=== PATIENT | female | born 1995 | race African-American/Black ===

== ENCOUNTER 2016-11-05 08:36 | Emergency (ER) | payer OTHER ==
[~2016-11-05] VITALS: Ht 154.9 cm; Wt 65.0 kg
[2016-11-05 08:43] VITALS: BP 126/75; PULSE 114; RESP 18; TEMP 99.6; O2SAT 98
--- NOTE | 2016-11-05 09:00 | PD ---
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 She reports she had a similar cyst between her breasts last week that went away on its own. She says last night she had a fever 102, associated with some sore throat and ear pain. The bump is painful, and she feels like there is fluid inside it. she has had thick white discharge and pain with urination. She is sexually active with one partner for the past year. [facility] Past Medical History Medical History: Denies Significant Hx Diminished Hearing: No Tetanus Vaccination: > 5 Years Influenza Vaccination: No ?: Unknown LMP: July,, "irregular" : 0 Past Surgical History Surgical History: No Previous Surgery Social History Alcohol Use: No Tobacco Use: No Substance Use: No Allergies-Medications (Allergen,Severity, Reaction): Coded Allergies: No Known Allergies (Unverified , 11/05/16) Reported Meds & Prescriptions Reported Meds & Active Scripts Active No Active Prescriptions or Reported Medications Review of Systems Except as stated in HPI: all other systems reviewed are Neg Physical Exam Narrative GENERAL: Well-nourished, well-developed patient. SKIN: Warm and dry. HEAD: Normocephalic. EYES: No scleral icterus. No injection or drainage. NECK: Supple, trachea midline. CARDIOVASCULAR: Regular rate and rhythm without murmurs. RESPIRATORY: Breath sounds equal bilaterally. No accessory muscle use. GASTROINTESTINAL: Abdomen soft, non-tender, nondistended. 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 Data Data Last Documented VS Vital Signs Date Time Temp Pulse Resp B/P Pulse Ox O2 Delivery O2 Flow Rate FiO2 11/05/16 08:43 99.6 114 18 126/75 98 MDM Medical Decision Making Medical Screen Exam Complete: Yes Emergency Medical Condition: Yes Differential Diagnosis Bartholin's cyst, abscess, herpes, yeast infection, chlamydia, gonorrhea, Trichomonas Narrative Course This is a 20-year-old female who presents to the emergency department reporting a lump on her vagina as well as some fever. Her pelvic exam is consistent with HSV and likely STD related cervicitis. Given she has a low-grade temperature and reports a fever at home he think it's reasonable to treat her for pelvic inflammatory disease. Patient will be given antibiotics as well as antivirals and can follow-up with primary care physician. Diagnosis Primary Impression: Genital HSV Qualified Code: A60.04 - Herpes simplex vulvovaginitis Additional Impression: Pelvic inflammatory disease Patient Instructions: General Instructions Additional Instructions: If you develop fever, chills, severe abdominal pain, persistent vomiting or inability to eat return to the emergency department. Your pelvic exam today did not include a Pap smear. It is important to followup with a grader green meat on a yearly basis to be tested for cervical cancer as we do not do that from the emergency department. If there is a concern that you have sexually transmitted disease, your partner should be tested. You should followup with your grader green [facility] or with the health department to get tested for other sexually transmitted diseases like HIV and syphilis, as we do not test for these in the emergency department Med/Other Pt SpecificInfo: Prescription(s) given Scripts Metronidazole (Flagyl)500 Mg Sys511 Mg PO BID 14 Days Prov:Erendira Garcia MD 11/05/16 Doxycycline (Monohydrate) (Doxycycline)150 Mg Cap1 Tab PO BID 14 Days Prov:Erendira Garcia MD 11/05/16 Valacyclovir 1 Gm Tab1,000 Mg PO BID 10 Days Ref 0 Prov:Erendira Garcia MD 11/05/16 Disposition: 01 DISCHARGE HOME Condition: Stable Erendira Garcia MD Nov 05, 2016 09:00
[2016-11-05] MEDS ORDERED: METR-1 PO (09:33)
[2016-11-05] MEDS ORDERED: VALA1TAB PO (09:33)
[2016-11-05] MEDS ORDERED: DOXY150C PO (09:33)
[2016-11-05] MEDS ORDERED: LIDOCAINE HCL 1% 50 ML VIAL IM ONE (09:45)
[2016-11-05] MEDS ORDERED: cefTRIAXone 250 MG VIAL IM ONE (09:45)
[2016-11-05 16:37] LABS: CHLAMYDIA PCR NOT DETECTED (NOT DETECT); NEISSERIA PCR NOT DETECTED (NOT DETECT)
[2016-11-06 11:27] LABS: VZV RESULT Negative (Negative); VZV SPECIMEN SOURCE VAGINA (())
== END 2016-11-05 10:25 | disposition home or self-care (01) ==
LOC: PHED 08:36
DX: A60.04 Herpesviral vulvovaginitis (principal); N73.9 Female pelvic inflammatory disease, unspecified
CPT/HCPCS: 87210; 87491; 87529; 87591; 87798; 96372; 99283; J0696

== ENCOUNTER 2017-04-03 22:30 | Emergency (ER) | payer OTHER ==
[~2017-04-03 22:30] MED LIST: DOXY150C PO; METR-1 PO; VALA1TAB PO
[2017-04-03 22:42] VITALS: BP 142/85; PULSE 97; RESP 18; TEMP 98; O2SAT 100
[2017-04-03] MEDS ORDERED: [UNRECOGNIZED DRUG - CODE] PO (23:33)
--- NOTE | 2017-04-03 23:33 | PD ---
HPI Chief Complaint: Cold / Flu Symptoms Time Seen by Provider: 23:27 Travel History International Travel<30 days: No Contact w/Intl Traveler<30days: No Traveled to known affect area: No History of Present Illness HPI The patient is a 21-year-old female that complains of a cough for 5 days along with rhinorrhea. She denies any chest pain, shortness of breath, nausea, vomiting and diarrhea and she is not . She denies any fever. She is mostly interested in the nasal congestion. She states there is no possibility of . She had a sore throat but this resolved days ago. [facility] Past Medical History Medical History: Denies Significant Hx Diminished Hearing: No Immunizations Current: Yes Tetanus Vaccination: Unknown Influenza Vaccination: No ?: Not LMP: TODAY : 0 Past Surgical History Surgical History: No Previous Surgery Social History Alcohol Use: No Tobacco Use: No Substance Use: No Allergies-Medications (Allergen,Severity, Reaction): Coded Allergies: No Known Allergies (Unverified , 04/03/17) Reported Meds & Prescriptions Reported Meds & Active Scripts Active Review of Systems Except as stated in HPI: all other systems reviewed are Neg Physical Exam Narrative GENERAL: Well-nourished, well-developed patient in no respiratory distress. Her vital signs show blood pressure 142/85 but are otherwise normal. SKIN: Focused skin assessment warm/dry. HEAD: Normocephalic. EYES: No scleral icterus. No injection or drainage. NECK: Supple, trachea midline. No JVD or lymphadenopathy. CARDIOVASCULAR: Regular rate and rhythm without murmurs, gallops, or rubs. RESPIRATORY: Breath sounds equal bilaterally. No accessory muscle use. GASTROINTESTINAL: Abdomen soft, non-tender, nondistended. MUSCULOSKELETAL: No cyanosis, or edema. BACK: Nontender without obvious deformity. No CVA tenderness. ENT: The tympanic membranes are clear and the throat is slightly red without exudate or abscess. Data Data Last Documented VS Vital Signs Date Time Temp Pulse Resp B/P Pulse Ox O2 Delivery O2 Flow Rate FiO2 04/03/17 22:42 98.0 97 18 142/85 100 MDM Medical Decision Making Medical Screen Exam Complete: Yes Emergency Medical Condition: Yes Medical Record Reviewed: Yes Differential Diagnosis Viral upper respiratory infection, sinusitis, pharyngitis, ear infection Narrative Course The patient has a viral upper respiratory infection with rhinorrhea being her most significant symptom. Plan: She will get Entex [place]. Diagnosis Primary Impression: Viral upper respiratory infection Med/Other Pt SpecificInfo: Prescription(s) given Scripts Pseudoephedrine-Guaifenesin (Entex T)60-375 Mg Tab1 Tab PO Q6HR WHILE AWAKE NEB #30 Prov:Sudhir Garcia MD 04/03/17 Disposition: 01 DISCHARGE HOME Condition: Stable Sudhir Garcia MD Apr 03, 2017 23:33
== END 2017-04-03 23:48 | disposition home or self-care (01) ==
LOC: PHEFT 22:30
DX: J06.9 Acute upper respiratory infection, unspecified (principal)
CPT/HCPCS: 99283

== ENCOUNTER 2017-04-09 19:19 | Emergency (ER) | payer OTHER ==
[~2017-04-09] VITALS: Ht 152.4 cm; Wt 69.0 kg
[~2017-04-09 19:19] MED LIST changes: -DOXY150C PO; -METR-1 PO; -VALA1TAB PO; +[UNRECOGNIZED DRUG - CODE] PO
[2017-04-09 19:25] VITALS: BP 136/94; PULSE 96; RESP 20; TEMP 98.2; O2SAT 99
[2017-04-09] MEDS ORDERED: AUGM875T3 PO (19:55)
--- NOTE | 2017-04-09 20:10 | PD ---
HPI Chief Complaint: ENT Complaint Time Seen by Provider: 19:45 Travel History International Travel<30 days: No Contact w/Intl Traveler<30days: No Traveled to known affect area: No History of Present Illness HPI 21-year-old female presents to the emergency room for evaluation of nasal congestion, nonproductive cough, sore throat, and right ear pain for the past 2 weeks. She came to the emergency room one week ago and was discharged with over -the-counter medications. States she seemed to feel worse after that. She has not followed up with her primary care physician. Denies fever, chills, nausea, and vomiting. She has a normal appetite and has been able to go to work. Patient denies chronic medical conditions or daily medications. [facility] Past Medical History Medical History: Denies Significant Hx Diminished Hearing: No Immunizations Current: Yes Tetanus Vaccination: > 5 Years Influenza Vaccination: No ?: Not LMP: "Last week" : 0 Past Surgical History Surgical History: No Previous Surgery Social History Alcohol Use: No Tobacco Use: No Substance Use: No Allergies-Medications (Allergen,Severity, Reaction): Coded Allergies: No Known Allergies (Unverified , 04/09/17) Reported Meds & Prescriptions Reported Meds & Active Scripts Active Augmentin (Amoxicillin-Clavulanate) 875-125 Mg Tab 1 Tab PO BID 10 Days Review of Systems Except as stated in HPI: all other systems reviewed are Neg Physical Exam Narrative GENERAL: Well-nourished, well-developed female in no acute distress. Afebrile. Ambulatory. SKIN: Focused skin assessment warm/dry. HEAD: Normocephalic. EYES: No scleral icterus. No injection or drainage. NECK: Supple, trachea midline. No JVD or lymphadenopathy. ENT: Mucosa pink and moist. Mild erythema with extreme edema but without exudates. No uvular edema. No uvular, palatal, or tonsillar deviation. Airway patent. Nasal turbinates appear normal without nasal blood, purulent drainage or septal hematoma. EARS: Bilateral pinnae and external canals appear within normal limits. Bilateral tympanic membranes without erythema, dullness or perforation. CARDIOVASCULAR: Regular rate and rhythm without murmurs, gallops, or rubs. RESPIRATORY: Breath sounds equal bilaterally. No accessory muscle use. No crackles, rales, wheezes, or rhonchi. Data Data Last Documented VS Vital Signs Date Time Temp Pulse Resp B/P Pulse Ox O2 Delivery O2 Flow Rate FiO2 04/09/17 19:35 18 04/09/17 19:25 98.2 96 136/94 99 MDM Medical Decision Making Medical Screen Exam Complete: Yes Emergency Medical Condition: Yes Medical Record Reviewed: Yes Differential Diagnosis Sinusitis, upper respiratory infection, bronchitis Narrative Course 21-year-old female presents to the emergency room for cough, congestion, sore throat, and other upper respiratory symptoms for the past 2 weeks. She was seen one week ago and states she feels worse since that time. Patient is afebrile well-appearing in the emergency room. Resting comfortably in bed. Physical exam reveals purulent drainage in the bilateral nostrils. She also has 4+ touching tonsils. She was given Decadron for the tonsils. Given worsening of symptoms and duration, patient will be treated for bacterial sinusitis with Augmentin. Discharged with prescription and told to follow-up with a primary care physician or return for worsening symptoms. She understands and agrees to plan. Diagnosis Primary Impression: Sinusitis Qualified Code: J01.00 - Acute maxillary sinusitis, recurrence not specified Referrals: Primary Care Physician Patient Instructions: General Instructions, Sinusitis (ED) Additional Instructions: Rest and drink plenty of fluids. Take Augmentin as directed, until gone. Follow-up with a primary care physician. Return to the emergency room for worsening symptoms. Med/Other Pt SpecificInfo: Prescription(s) given Scripts Amoxicillin-Clavulanate (Augmentin)875-125 Mg Tab1 Tab PO BID 10 Days Ref 0 Prov:Oniel Meek MD 04/09/17 Disposition: 01 DISCHARGE HOME Condition: Stable Zoila Cai Apr 09, 2017 20:10
[2017-04-09] MEDS ORDERED: DEXAMETHASONE SOD PHOS 4 MG/ML VIAL IM ONE (20:15)
== END 2017-04-09 20:20 | disposition home or self-care (01) ==
LOC: PHEFT 19:19
DX: J01.00 Acute maxillary sinusitis, unspecified (principal)
CPT/HCPCS: 96372; 99284; J1100

== ENCOUNTER 2017-07-25 15:28 | Emergency (ER) | payer OTHER ==
[~2017-07-25] VITALS: Ht 154.9 cm; Wt 69.0 kg
[~2017-07-25 15:28] MED LIST changes: +AUGM875T3 PO; -[UNRECOGNIZED DRUG - CODE] PO
[2017-07-25 15:34] VITALS: BP 142/69; PULSE 113; RESP 16; TEMP 98; O2SAT 100
[2017-07-25 16:06] LABS: BLOOD, URINE TRACE (NEG); GLUCOSE,URINE NEG (NEG); KETONE, URINE NEG (NEG); NITRITE,URINE NEG (NEG); PH, URINE 5.5 (5.0-8.5)
[2017-07-25 16:37] LABS: METHOD OF COLLECTION VOIDED
[2017-07-25 16:38] LABS: BACTERIA, URINE RARE /hpf; COMMENT (UR) CULT NOT INDICATED; CULTURE IF INDICATED CULT NOT INDICATED; URINE COLOR YELLOW (YELLW/STRAW)
--- NOTE | 2017-07-25 16:45 | PD ---
HPI Chief Complaint: Complaint Time Seen by Provider: 16:37 Travel History International Travel<30 days: No Contact w/Intl Traveler<30days: No Traveled to known affect area: No History of Present Illness HPI 21-year-old female presents to emergency department for burning when she pees that started after cutting herself in the shower. States that she was shaving and accidentally cut herself and then started developing bumps in the vaginal area that are tender to the touch. She does have a history of herpes simplex and her last outbreak was in November. She denies any other medical issues. Fever, chills, chest pain, shortness of breath, abdominal pain, back pain, vaginal discharge. PFSH Past Medical History Diminished Hearing: No Medical other: Yes (GENITAL HERPES) Immunizations Current: Yes Tetanus Vaccination: < 5 Years Influenza Vaccination: No ?: Not LMP: /MAY : 0 Past Surgical History Surgical History: No Previous Surgery Social History Alcohol Use: No Tobacco Use: No Substance Use: No Allergies-Medications (Allergen,Severity, Reaction): Coded Allergies: No Known Allergies (Unverified , 07/25/17) Reported Meds & Prescriptions Reported Meds & Active Scripts Active Valacyclovir (Valacyclovir HCl) 500 Mg Tab 500 Mg PO BID 5 Days Review of Systems Except as stated in HPI: all other systems reviewed are Neg Physical Exam Narrative GENERAL: Well-nourished, well-developed patient. SKIN: Focused skin assessment warm/dry. HEAD: Normocephalic. EYES: No scleral icterus. No injection or drainage. NECK: Supple, trachea midline. No JVD or lymphadenopathy. CARDIOVASCULAR: Regular rate and rhythm without murmurs, gallops, or rubs. RESPIRATORY: Breath sounds equal bilaterally. No accessory muscle use. GASTROINTESTINAL: Abdomen soft, non-tender, nondistended. MUSCULOSKELETAL: No cyanosis, or edema. No CVA tenderness Genitourinary: small 1-2mm ulcerations in the posterior external vulva, no discharge, edema, or erythema. BACK: Nontender without obvious deformity. No CVA tenderness. Data Data Last Documented VS Vital Signs Date Time Temp Pulse Resp B/P (MAP) Pulse Ox O2 Delivery O2 Flow Rate FiO2 07/25/17 15:34 98.0 113 16 142/69 (93) 100 Orders Orders Urinalysis - C+S If Indicated (07/25/17 15:38) Ed Urine Pregnancytest Poc (07/25/17 15:38) Ed Discharge Order (07/25/17 16:53) Labs Laboratory Tests Test 07/25/17 15:40 Urine Collection Type VOIDED Urine Color YELLOW Urine Turbidity CLEAR Urine pH 5.5 Urine Specific [place] 1.025 Urine Protein NEG mg/dL Urine Glucose (UA) NEG mg/dL Urine Ketones NEG mg/dL Urine Occult Blood TRACE Urine Nitrite NEG Urine Bilirubin NEG Urine Leukocyte Esterase SMALL Urine WBC 6-8 /hpf Urine Squamous Epithelial Cells 6-8 /hpf Urine Bacteria RARE /hpf Microscopic Urinalysis Comment CULT NOT INDICATED MDM Medical Decision Making Medical Screen Exam Complete: Yes Emergency Medical Condition: Yes Differential Diagnosis Genital Herpes simplex versus vaginal laceration versus UTI Narrative Course 21-year-old female presents to the emergency department for complaints of vaginal irritation and burning when she peas. States started after shaving and has developed bumps in the area. She believes this is a herpes outbreak. Physical exam consistent with genital HSV Urine has some white blood cells but also has some squamous cell indicating contamination. Valacyclovir for her outbreak- she has had this medication prior. Advised to return to ED for worsening symptoms. Diagnosis Primary Impression: Genital HSV Qualified Codes: A60.04 - Herpesviral vulvovaginitis Referrals: Primary Care Physician Additional Instructions: Use the topical medication sparingly for pain. Use valacyclovir as prescribed Scripts Valacyclovir (Valacyclovir) 500 Mg Tab 500 MG PO BID for Mgmt Viral Infection for 5 Days, #10 TAB 0 Refills Prov: Fernie Del Rio MD 07/25/17 Disposition: 01 DISCHARGE HOME Condition: Stable Joan Pagan Jul 25, 2017 16:45
[2017-07-25] MEDS ORDERED: VALA500T PO ×2 (16:49→16:52)
== END 2017-07-25 17:03 | disposition home or self-care (01) ==
LOC: PHEFT 15:28
DX: A60.04 Herpesviral vulvovaginitis (principal)
CPT/HCPCS: 81001; 84703; 99283